=== PATIENT | female | born 1970 | race Caucasian/White ===

== ENCOUNTER 2020-04-24 13:25 | Emergency (ER) | payer OTHER ==
[2020-04-24 13:30] VITALS: BP 114/84; TEMP 97.8; BMI 25.4
[2020-04-24 14:37] VITALS: PULSE 96
== END 2020-04-24 14:21 | disposition home or self-care (01) ==
LOC: JERFT 13:25
DX: U07.1 COVID-19 (principal)
CPT/HCPCS: C9803; Q3014-GT; U0003

== ENCOUNTER 2021-04-10 07:08 | Day surgery (SDC) | payer OTHER ==
[2021-04-05 16:34] VITALS: BMI 27.3
[2021-04-10] MEDS ORDERED: LIDOCAINE HCL/PF 2% SDV 5ML VIAL ONE (07:56)
[2021-04-10] MEDS ORDERED: PROPOFOL 20 ML ONE ×2 (07:56)
[2021-04-10 08:46] VITALS: TEMP 98
[2021-04-10 09:09] VITALS: BP 108/68; PULSE 73
== END 2021-04-10 09:30 | disposition home or self-care (01) ==
LOC: FASU-ENDO 07:08
PROVIDERS: ATTEND Internal Medicine Gastroenterology
PROC: 0DJD8ZZ Inspection of Lower Intestinal Tract, Via Natural or Artificial Opening Endoscopic (ICD-10-PCS; principal; 2021-04-10 08:00)
DX: Z12.11 Encounter for screening for malignant neoplasm of colon (principal); K64.0 First degree hemorrhoids

== ENCOUNTER 2022-04-26 07:52 | Emergency (ER) | payer OTHER ==
[2022-04-26 08:33] VITALS: BP 135/82; PULSE 65; RESP 18; TEMP 98; BMI 26.8
== END 2022-04-26 09:19 | disposition home or self-care (01) ==
LOC: JERFT 07:52 → JER 07:52 → JERFT 09:19
DX: T20.10XA Burn of first degree of head, face, and neck, unspecified site, initial encounter (principal); X10.0XXA Contact with hot drinks, initial encounter
CPT/HCPCS: 99282-25

== ENCOUNTER 2022-07-02 08:11 | Emergency (ER) | payer OTHER ==
[2022-07-02 08:18] VITALS: BMI 26.9
[2022-07-02] MEDS ORDERED: FLUORESCEIN NA 1 EA STRIP OS ONE (10:29)
[2022-07-02 11:03] LABS: BASO % 0.5 % (0-2.0); EOS % 0.8 % (0-4.5); HEMATOCRIT 40.5 % (32.4-45.2); HEMOGLOBIN 13.7 GM/dL (10.7-15.3); LYMPH % 25.8 % (8-40); MCH 32.3 pg (25.7-33.7); MCHC 33.9 g/dl (32.0-36.0); MEAN CELL VOLUME 95.3 fl (80-96); MEAN PLT VOLUME 8.1 fl (7.5-11.1); MONO % 7.2 % (3.8-10.2); NEUT % 65.7 % (42.8-82.8); PLATELET COUNT 255 10^3/uL (134-434); RBC 4.25 M/mm3 (3.60-5.2); RDW 12.5 % (11.6-15.6); WHITE BLOOD COUNT 6.3 K/mm3 (4.0-10.0)
[2022-07-02 11:16] LABS: CHLORIDE 104 mmol/L (98-107); SODIUM 140 mmol/L (136-145)
[2022-07-02 11:19] LABS: ALBUMIN 3.8 g/dl (3.4-5.0); CALCIUM 8.6 mg/dL (8.5-10.1)
[2022-07-02 11:20] LABS: ANION GAP 9 MMOL/L (8-16); BLOOD UREA NITROGEN 13.1 mg/dL (7-18); CO2 26 mmol/L (21-32); GLUCOSE,RANDOM 74 mg/dL (74-106); MAGNESIUM 1.8 mg/dL (1.8-2.4)
[2022-07-02 11:22] LABS: CREATININE 0.7 mg/dL (0.55-1.3)
[2022-07-02 11:23] LABS: SGOT/AST 15 U/L (15-37); SGPT/ALT 18 U/L (13-61)
[2022-07-02 11:25] LABS: BILIRUBIN,TOTAL 0.6 mg/dL (0.2-1); TOT PROT 7.7 g/dl (6.4-8.2)
[2022-07-02 11:26] LABS: ALK PHOS 74 U/L (45-117)
[2022-07-02 11:52] VITALS: BP 130/56; PULSE 63; RESP 18; TEMP 98
== END 2022-07-02 12:34 | disposition home or self-care (01) ==
LOC: JER 08:11
DX: H10.32 Unspecified acute conjunctivitis, left eye (principal); R00.2 Palpitations
CPT/HCPCS: 0241U-QW; 36415; 71046-TC-FY; 80053; 83735; 84443; 84484; 84703; 85025; 93005; 93010; 99285-25